=== PATIENT | male | born 1985 | race Caucasian/White ===

== ENCOUNTER 2018-06-12 21:49 | Emergency (ER) | payer SELFPAY ==
[~2018-06-12] VITALS: Ht 175.3 cm; Wt 74.8 kg
[2018-06-12 21:57] VITALS: BP 124/76
--- NOTE | 2018-06-12 21:59 | NUR ---
PT AMBULATORY TO ER LOBBY W/ STEADY GAIT IN STABLE CONDITION.
--- NOTE | 2018-06-12 23:15 | NUR ---
PT TAKEN TO BED 4
--- NOTE | 2018-06-12 23:25 | NUR ---
CAME IN WITH C/O OF LEFT EYE PAIN, REDNESS. WITH STY,FOR 2 WEEKS NOW. AND RT EYE WITH REDNESS AND SWELLING, PAIN STARTED 2 HOURS AGO, HE APPLIED OTC MEDICATIONS.
--- NOTE | 2018-06-13 01:45 | NUR ---
I&D Procedure done by Dr Arun TONEY amt of bleeding noted. Wound packed with . DSD applied. Pt procedure. Wound care discussed w/ patient.
[2018-06-13] MEDS ORDERED: LIDOCAINE 2% 1000 MG/50 ML VIAL INJ ONE (01:46)
[2018-06-13 01:59] VITALS: BP 122/78
--- NOTE | 2018-06-13 01:59 | NUR ---
Patient discharged with v/s stable. Written and verbal after care instructions given and explained, by . Patient alert, oriented and verbalized understanding of instructions. Ambulatory with steady gait. All questions addressed prior to discharge. ID band removed. Patient advised to follow up with PMD. Rx of ERYTHROMYCIN 0.5% given. Patient educated on indication of medication including possible reaction and side effects. Opportunity to ask questions provided and answered.
== END 2018-06-13 01:59 | disposition home or self-care (01) ==
LOC: MED 21:49
DX: H00.015 Hordeolum externum left lower eyelid (principal)
CPT/HCPCS: 67700; 99284; J2001

== ENCOUNTER 2018-07-13 21:57 | Emergency (ER) | payer MEDICAID ==
[~2018-07-13] VITALS: Ht 175.3 cm; Wt 74.4 kg
[2018-07-13 22:00] VITALS: BP 124/74
[2018-07-14] MEDS ORDERED: TETRACAINE HCL/PF 0.5% OPTH 4 ML BTL OP ONE (00:20)
[2018-07-14] MEDS ORDERED: ERYTHROMYCIN 0.5% OPTH OINT 1 GM TUBE OP SCH (00:20)
[2018-07-14] MEDS ORDERED: TETRACAINE HCL/PF 0.5% OPTH 4 ML BTL ONE (00:28)
[2018-07-14 01:30] VITALS: BP 121/75
== END 2018-07-14 01:30 | disposition home or self-care (01) ==
LOC: MED 21:57
DX: H00.12 Chalazion right lower eyelid (principal)
CPT/HCPCS: 67700; 99281; 99283; 99284

== ENCOUNTER 2019-06-10 00:48 | Emergency (ER) | payer MEDICAID, OTHER ==
[~2019-06-10] VITALS: Ht 177.8 cm; Wt 77.1 kg
[2019-06-10 01:00] VITALS: BP 129/62
--- NOTE | 2019-06-10 01:03 | NUR ---
to lobby a/w bed ambulatory
--- NOTE | 2019-06-10 02:40 | NUR ---
PT AMBULATED TO BED 3
--- NOTE | 2019-06-10 02:55 | NUR ---
PT CAME TO ER C/O RIGHT EYE REDNESS AND SWELLING X OVER 2 WEEKS. PT DENIES VISION CHANGES. DENIES PAIN, PAIN LEVEL 0/10. PT HAS BEEN TRYING WARM COMPRESSES AND ERYTHROMYCIN OPTHALMIC OINTMENT THAT WAS PRESCRIBED FROM A PREVIOUS VISIT IN JUNE 2018 FOR SAME ISSUES ON LEFT EYE. ALLERGIES: PENICILLIN. NO MED HX. SAFETY MEASURES IN PLACE. WAITING FOR ERMD TO EVALUATE PT.
--- NOTE | 2019-06-10 04:31 | NUR ---
PT RESTING IN BED, EYES OPEN ON CELL PHONE. WILL CONTINUE TO MONITOR
--- NOTE | 2019-06-10 05:00 | NUR ---
PT RESTING IN BED WITH EYES CLOSED. VSS. WILL CONTINUE TO MONITOR.
--- NOTE | 2019-06-10 05:05 | NUR ---
Dr. Osborne evaluating patient at bedside.
--- NOTE | 2019-06-10 05:35 | NUR ---
Patient discharged with v/s stable. PT was given referal to opthamalogist. pt advised to continue with warm compresses 15-20 minutes. Written and verbal after care instructions given and explained. Patient verbalized understanding. Ambulatory with steady gait. All questions addressed prior to discharge. Advised to follow up with eye doctor.
[2019-06-10 05:37] VITALS: BP 126/72
== END 2019-06-10 05:35 | disposition home or self-care (01) ==
LOC: MED 00:48
DX: H00.013 Hordeolum externum right eye, unspecified eyelid (principal); Z88.0 Allergy status to penicillin
CPT/HCPCS: 99283